=== PATIENT | male | born 1970 | race Asian ===

== ENCOUNTER 2021-06-25 20:41 | Observation (INO) | payer OTHER ==
[2021-06-25] MEDS ORDERED: MECLIZINE HCL 25 MG TABLET (FP) PO ONE (22:55)
[2021-06-25 23:12] LABS: BASO % 0.4 % (0-2.0); EOS % 2.7 % (0-4.5); HEMOGLOBIN 16.9 GM/dL (11.7-16.9); LYMPH % 32.7 % (8-40); MCH 29.1 pg (25.7-33.7); MCHC 34.5 g/dl (32.0-35.9); MEAN CELL VOLUME 84.5 fl (80-96); MEAN PLT VOLUME 10.4 fl (7.5-11.1); MONO % 8.1 % (3.8-10.2); NEUT % 56.1 % (42.8-82.8); PLATELET COUNT 143 10^3/uL (134-434); RDW 13.2 % (11.9-15.9); WHITE BLOOD COUNT 9.5 K/mm3 (4.0-10.0)
[2021-06-25] MEDS ORDERED: MECLIZINE HCL 25 MG TABLET (FP) ONE (23:20)
[2021-06-25 23:21] LABS: INR 1.01 (0.83-1.09); PROTHROMBIN TIME (PATIENT) 11.6 SEC (9.7-13.0)
[2021-06-25 23:23] LABS: ACTIVATED PTT 33.4 SECONDS (25.2-36.5)
[2021-06-25 23:39] LABS: CALCIUM 9.3 mg/dL (8.5-10.1); CHOLESTEROL 167 mg/dL (50-200); TRIGLYCERIDES 190 mg/dL (0-150)
[2021-06-25 23:40] LABS: BLOOD UREA NITROGEN 13.9 mg/dL (7-18); LDL CHOLESTEROL (ONLY SJRH) 108 mg/dL (5-100)
[2021-06-25 23:42] LABS: HDL CHOLESTEROL 33 mg/dL (40-60)
[2021-06-25 23:43] LABS: CREATININE 1.1 mg/dL (0.55-1.3)
[2021-06-25 23:45] LABS: BILIRUBIN,TOTAL 0.5 mg/dL (0.2-1); TOT PROT 7.8 g/dl (6.4-8.2)
[2021-06-26 07:59] LABS: BASO % 0.4 % (0-2.0); EOS % 3.6 % (0-4.5); HEMATOCRIT 49.9 % (35.4-49); MCHC 34.1 g/dl (32.0-35.9); MEAN CELL VOLUME 84.9 fl (80-96); MEAN PLT VOLUME 10.4 fl (7.5-11.1); PLATELET COUNT 139 10^3/uL (134-434); RBC 5.87 M/mm3 (4.00-5.60); RDW 13.3 % (11.9-15.9); WHITE BLOOD COUNT 8.7 K/mm3 (4.0-10.0)
[2021-06-26 08:13] LABS: CHLORIDE 104 mmol/L (98-107); SODIUM 140 mmol/L (136-145)
[2021-06-26 08:18] LABS: ALBUMIN 3.7 g/dl (3.4-5.0); ANION GAP 5 MMOL/L (8-16); CALCIUM 9.2 mg/dL (8.5-10.1); CO2 30 mmol/L (21-32); GLUCOSE,RANDOM 87 mg/dL (74-106); MAGNESIUM 2.4 mg/dL (1.8-2.4)
[2021-06-26 08:20] LABS: CHOLESTEROL 166 mg/dL (50-200)
[2021-06-26 08:21] LABS: CREATININE 1.1 mg/dL (0.55-1.3); PHOSPHOROUS 3.3 mg/dL (2.5-4.9); SGOT/AST 19 U/L (15-37); SGPT/ALT 33 U/L (13-61); TRIGLYCERIDES 103 mg/dL (0-150)
[2021-06-26 08:22] LABS: LDL CHOLESTEROL (ONLY SJRH) 117 mg/dL (5-100)
[2021-06-26 08:23] LABS: BILIRUBIN,TOTAL 0.7 mg/dL (0.2-1); TOT PROT 7.4 g/dl (6.4-8.2)
[2021-06-26 08:24] LABS: ALK PHOS 81 U/L (45-117); HDL CHOLESTEROL 37 mg/dL (40-60)
[2021-06-26 09:39] LABS: ERYTHROCYTE SEDIMENTATION RATE 3 mm/hr (0-20)
[2021-06-26] MEDS: ENOXAPARIN NA (PORCINE) 40 MG/0.4 ML DISP.SYRIN SQ SCH (10:15)
[2021-06-26] MEDS ORDERED: ENOXAPARIN NA (PORCINE) 40 MG/0.4 ML DISP.SYRIN SQ ONE (11:06)
[2021-06-27 04:30] VITALS: BMI 25.8
[2021-06-27 10:14] LABS: CALCIUM 9.1 mg/dL (8.5-10.1)
[2021-06-27 10:15] LABS: BLOOD UREA NITROGEN 16.9 mg/dL (7-18)
[2021-06-27 10:17] LABS: CREATININE 1.2 mg/dL (0.55-1.3)
[2021-06-27 10:28] LABS: BASO % 0.3 % (0-2.0); EOS % 2.7 % (0-4.5); HEMATOCRIT 50.4 % (35.4-49); HEMOGLOBIN 17.4 GM/dL (11.7-16.9); LYMPH % 28.9 % (8-40); MCH 29.2 pg (25.7-33.7); MCHC 34.5 g/dl (32.0-35.9); MEAN CELL VOLUME 84.7 fl (80-96); MEAN PLT VOLUME 10.9 fl (7.5-11.1); MONO % 6.8 % (3.8-10.2); NEUT % 61.3 % (42.8-82.8); PLATELET COUNT 147 10^3/uL (134-434); RBC 5.95 M/mm3 (4.00-5.60); RDW 13.4 % (11.9-15.9); WHITE BLOOD COUNT 8.9 K/mm3 (4.0-10.0)
[2021-06-27] MEDS: ENOXAPARIN NA (PORCINE) 40 MG/0.4 ML DISP.SYRIN SQ SCH (11:20)
[2021-06-27 11:54] VITALS: BP 151/87; PULSE 82; TEMP 97.8
== END 2021-06-27 12:04 | disposition home or self-care (01) ==
LOC: JER 20:41 → UNDOADMOB 06-26 01:15 → JERBED 06-26 01:15 → INTOOBSV 06-26 01:15 → JERBED 06-26 23:02 → J5S 06-26 23:02 → JERBED 06-27 08:32
PROVIDERS: ADMIT Hospitalist
PROC: 3E023GC Introduction of Other Therapeutic Substance into Muscle, Percutaneous Approach (ICD-10-PCS; principal; 2021-06-27)
DX: H53.2 Diplopia (principal); Z29.9 Encounter for prophylactic measures, unspecified
CPT/HCPCS: 36415; 70450-TC; 70544-TC; 70553-TC; 80048; 80053; 80061; 82550; 82607; 83036; 83735; 84100; 84439; 84443; 84445; 84481; 84484; 85025; 85610; 85651; 85730; 86140; 86618; 86780; 86850; 86900; 86901; 87529; 93005; 93010; 96372; 99285-25; C9803; G0378; U0003; U0005